=== PATIENT | male | born 2000 | race Caucasian/White ===

== ENCOUNTER 2021-01-28 15:06 | Emergency (ER) | payer BC ==
[~2021-01-28] VITALS: Ht 182.9 cm; Wt 99.3 kg
--- NOTE | 2021-01-28 15:41 | NUR ---
Pt c/o redness and stinging pain, 5-6/10 on hands and arms, face, and scalp, pain greater when in sunlight for about 2 days. Pt admits to switching to new shampoo. Pt denies CP, SOB, dizziness, n/v, no other complaints, no distress noted. Gave pt ice packs for skin irritation relief.
[2021-01-28] MEDS ORDERED: HYDR453.3 TP (16:10)
--- NOTE | 2021-01-28 16:21 | NUR ---
Gave pt RX and d/c instructions, pt verbalized understanding.
== END 2021-01-28 16:22 | disposition home or self-care (01) ==
LOC: ER 15:14
DX: R21 Rash and other nonspecific skin eruption (principal); F17.210 Nicotine dependence, cigarettes, uncomplicated
CPT/HCPCS: 36415; 86592; A4663

== ENCOUNTER 2021-03-30 13:11 | Emergency (ER) | payer BC ==
[~2021-03-30] VITALS: Ht 182.9 cm; Wt 104.3 kg
[~2021-03-30 13:11] MED LIST: HYDR453.3 TP
--- NOTE | 2021-03-30 15:01 | NUR ---
[email or web address], medical screening exam in progress
--- NOTE | 2021-03-30 15:11 | NUR ---
Patient's SpO2 levels=95%-96% at room air after a minute of walking in place in his isolated room, notified.
--- NOTE | 2021-03-30 15:17 | NUR ---
For discharge, pending written discharge papers from Dr Antonio
--- NOTE | 2021-03-30 15:26 | NUR ---
Patient is for discharge to sober living home by Dr Antonio. He is in stable condition. Written and verbal after care instructions given to patient. Patient verbalized understanding and compliance of instructions. Stressed follow up with his primary doctor via teleconference/video or return to ER for worsening s/s. Patient wants his lead mental health worker called @ for pick[employer] material [employer].
--- NOTE | 2021-03-30 15:29 | NUR ---
Per Rosy, (the mental health worker at patient's sober living home), we need to call the fixed income director/ nurses of their sober living home. Message was left at , pending callback. Patient is waiting in our ER room 3 for the time being.
--- NOTE | 2021-03-30 15:36 | NUR ---
Patient will now wait outside the ER department in open air. 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
== END 2021-03-30 15:37 | disposition home or self-care (01) ==
LOC: ER 13:11
DX: U07.1 COVID-19 (principal); F17.200 Nicotine dependence, unspecified, uncomplicated
CPT/HCPCS: 71045; A4663